=== PATIENT | male | born 1945 | race American Indian/Alaskan Native ===

== ENCOUNTER 2017-03-22 22:24 | Emergency (ER) | payer MEDICARE ==
[~2017-03-22 22:24] MED LIST: AMIDATE IV ONE; XYLOCAINE CARDIAC IV ONE; ZEMURON IV ONE
[2017-03-22] MEDS ORDERED: ZOFRAN ONE (22:29)
[2017-03-22] MEDS ORDERED: ZOFRAN IV ONE (22:34)
[2017-03-22] MEDS ORDERED: XYLOCAINE CARDIAC IV ONE (22:35)
[2017-03-22] MEDS ORDERED: ZEMURON IV ONE (22:36)
[2017-03-22] MEDS ORDERED: AMIDATE IV ONE (22:37)
[2017-03-22] MEDS ORDERED: LEVOPHED DRIP 4 MG/NS 250 ML 4 MG/250 ML BAG IV ONE (22:40)
[2017-03-22] MEDS ORDERED: NACL 0.9% 1000 ML 1,000 ML ONE (22:40)
[2017-03-22] MEDS ORDERED: NACL 0.9% 1000 ML 2,000 ML IV ONE (23:04)
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
[2017-03-22] MEDS ORDERED: LEVOPHED DRIP 4 MG/NS 250 ML 4 MG/250 ML BAG IV SCH (23:15)
[2017-03-22 23:36] LABS: INR 1.06 (0.87-1.13); Partial Thromboplastin Time 27.7 Sec. (24.2-36.6)
[2017-03-22 23:40] LABS: Hematocrit 37.4 % (35.5-45.6); Hemoglobin 12.1 gm/dl (11.8-15.2); Mean Corpuscular HGB Conc 32 % (32-34); Mean Corpuscular Hemoglobin 28 pg (28-32); Mean Corpuscular Volume 87 fl (84-94); Platelet Count 259 K/mm3 (140-440); Red Cell Distribution Width 15.3 % (13.2-15.2); White Blood Count 10.6 K/mm3 (4.5-11.0)
[2017-03-22] MEDS ORDERED: BOOSTRIX IM ONE (23:40)
[2017-03-23] LABS: ISTAT Base Excess -1; ISTAT HCO3 22.8; ISTAT PCO2 33.5 (35-45); ISTAT PH 7.441 (7.35-7.45); ISTAT PO2 465 (80-105); ISTAT SO2 100; ISTAT TCO2 24
[2017-03-23 00:02] LABS: Alanine Aminotransferase 22 units/L (7-56); Albumin 4.4 g/dL (3.9-5); Albumin/Globulin Ratio 1.7 %; Alkaline Phosphatase 112 units/L (35-129); Anion Gap 18 mmol/L; BUN/Creatinine Ratio 16.36; Blood Urea Nitrogen 18 mg/dL (9-20); Carbon Dioxide 25 mmol/L (22-30); Chloride 102.8 mmol/L (98-107); Glucose 105 mg/dL (75-100); Sodium 142 mmol/L (137-145)
[2017-03-23] MEDS ORDERED: SUBLIMAZE ONE (00:03)
[2017-03-23] MEDS ORDERED: fentaNYL DRIP Premix 2,000 MCG/100 ML BAG IV ONE (00:03)
[2017-03-23 00:09] LABS: Bilirubin,Direct < 0.2 mg/dL (0-0.2); Bilirubin,Indirect 0.3 mg/dL
[2017-03-23] MEDS ORDERED: SUBLIMAZE IV ONE (00:15)
[2017-03-23] MEDS ORDERED: fentaNYL DRIP Premix 2,000 MCG/100 ML BAG IV SCH ×2 (00:17→01:00)
[2017-03-23 00:25] VITALS: BP 127/70
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
== END 2017-03-23 00:36 | disposition short-term general hospital (02) ==
LOC: ED 22:24
DX: S82.402A Unspecified fracture of shaft of left fibula, initial encounter for closed fracture (principal); S82.202A Unspecified fracture of shaft of left tibia, initial encounter for closed fracture; V03.99XA Pedestrian with other conveyance injured in collision with car, pick-up truck or van, unspecified whether traffic or nontraffic accident, initial encounter; Y93.89 Activity, other specified; Y99.9 Unspecified external cause status; Y92.410 Unspecified street and highway as the place of occurrence of the external cause
CPT/HCPCS: 27752; 31500; 36415; 36430; 36556; 71010; 72170; 73590; 74000; 80048; 80074; 82803; 85027; 85610; 85730; 86850; 86900; 86901; 86920; 90471; 90715; 96365; 96375; 99291; J2001; J2405; J3010; J7030; P9016; 94002